=== PATIENT | male | born 1970 | race Caucasian/White ===

== ENCOUNTER 2021-01-06 00:40 | Day surgery (SDC) | payer BC, SELFPAY ==
[2020-12-22 09:46] VITALS: BMI 39.5
[2021-01-06 06:19] VITALS: BP 141/98; PULSE 77; RESP 20; TEMP 35.9; O2SAT 100
[2021-01-06] MEDS: LACTATED RINGERS 1,000 ML 150 ML IV CONT (06:21)
--- NOTE | 2021-01-06 07:16 | WPDANESEPPF ---
Anes - Initial Pre Proc Eval Procedure: Operation Date: 01/06/21 07:30 Proposed Procedures p Screening Colonoscopy - Lenny Good MD Date/Time: 01/06/21 07:16 Surgeon: Lenny Good MD Pre Op Diagnosis: neoplasm screening Patient Data Age: 50 Gender: M Height: 1.85 m Weight: 139.4 kg Last Vital Signs Temp 35.9 C L 01/06/21 06:19 Pulse 77 01/06/21 06:19 Resp 20 01/06/21 06:19 BP 141/98 H 01/06/21 06:19 Pulse Ox 100 01/06/21 06:19 Allergies Allergy/AdvReac Type Severity Reaction Status Date / Time No Known Allergies Allergy Verified 01/06/21 06:16 Home Medications Medication Instructions Recorded Confirmed Type atenolol 25 mg tablet 25 mg PO DAILY #90 tablet 10/22/20 01/06/21 Rx fluticasone propionate 50 2 spray INTRANASAL DAILY PRN #15.8 11/15/20 01/06/21 Rx mcg/actuation nasal ml spray,suspension Patient hx anesthesia problems: none Family hx anesthesia problems: none Results Review: All pre-operative results and documents have been reviewed as part of the pre-operative evaluation. [facility] Family History Family History Father Patient's father is Mother Hypertension Social History Social History Years smoked: 3 Smoking status: Former smoker Tobacco type: cigars Second hand tobacco smoke exposure: No Alcohol intake: current Alcohol use details: occasional Substance use: never Living arrangements: with family Spiritual care concerns: No Anes - Eval Final PreProcedure Day of Procedure 01/06/21 07:16 Patient weight: morbidly obese Heart: regular rate and rhythm Lungs: clear to auscultation Airway: Mallampati scale class II Neurological: alert and oriented Last oral intake: >/= 8 hours ASA classification: III Emergent: no Anesthetic plan: proceed Anesthesia type and monitoring: general GIVS and standard monitoring Results Review: All pre-operative results and documents have been reviewed as part of the pre-operative evaluation. Informed Consent: The patient's anesthetic plan and its attendant risks and benefits were discussed with the patient/family/POA. Questions were solicited and answers provided to the satisfaction of the patient/family/POA.
--- NOTE | 2021-01-06 07:21 | WPDGICN ---
Assessment and Plan Assessment and plan (1) Family history of colon cancer in mother: Code(s): Z80.0 - Family history of malignant neoplasm of digestive organs Status: Acute Assessment and Plan: Patient presents for neoplasia screening colonoscopy because of his age but also because of his mother having had colon cancer. Further recommendations will be given after screening colonoscopy GI Consult Note Consult date/time: 01/06/21 07:21 HPI: Jaya King Sr. is a 50 year old male Presents for screening colonoscopy. Patient reports that his current weight appetite and bowel movements are normal. He denies abdominal pain. He has had no bleeding. Family history is significant that his mother had colon cancer. Review of Systems Review of Systems: All systems reviewed & are unremarkable except as noted in HPI and below PMFSH Family History Family History Father Patient's father is Mother Hypertension Social History Social History Years smoked: 3 Smoking status: Former smoker Tobacco type: cigars Second hand tobacco smoke exposure: No Alcohol intake: current Alcohol use details: occasional Substance use: never Living arrangements: with family Spiritual care concerns: No Meds Home Medications and Allergies Home Medications Medication Instructions Recorded Confirmed Type atenolol 25 mg tablet 25 mg PO DAILY #90 tablet 10/22/20 01/06/21 Rx fluticasone propionate 50 2 spray INTRANASAL DAILY PRN #15.8 11/15/20 01/06/21 Rx mcg/actuation nasal ml spray,suspension Allergies Allergy/AdvReac Type Severity Reaction Status Date / Time No Known Allergies Allergy Verified 01/06/21 06:16 Vital Signs Vital Signs - 24 hr 01/06/21 06:19 Temperature 96.7 F L Pulse Rate 77 Respiratory Rate 20 Blood Pressure 141/98 H Pulse Oximetry 100 Exam Narrative: Physical exam reveals patient be alert. Vital signs stable. HEENT exam is unremarkable. Patient is anicteric. Lungs are clear to auscultation and percussion. Heart is without murmur or extra sounds. Abdominal exam bowel sounds are present soft nontender with no organomegaly. Digital external rectal exam is normal.
[2021-01-06 07:49] VITALS: BP 119/83; PULSE 75; RESP 16; O2SAT 97
[2021-01-06 07:59] VITALS: BP 136/84; PULSE 76; RESP 18; O2SAT 99
[2021-01-06 08:09] VITALS: BP 140/95; PULSE 72; RESP 20; O2SAT 100
== END 2021-01-06 08:22 | disposition home or self-care (01) ==
PROVIDERS: PCP Internal Medicine; Visit Provider Internal Medicine Gastroenterology
PROC: 0DJD8ZZ Inspection of Lower Intestinal Tract, Via Natural or Artificial Opening Endoscopic (ICD-10-PCS; CPT 45378; principal; 2021-01-06 07:30)
DX: Z12.11 Encounter for screening for malignant neoplasm of colon (principal); D12.3 Benign neoplasm of transverse colon; K62.1 Rectal polyp; K64.8 Other hemorrhoids; Z80.0 Family history of malignant neoplasm of digestive organs; Z87.891 Personal history of nicotine dependence; E66.01 Morbid (severe) obesity due to excess calories; Z68.41 Body mass index [BMI] 40.0-44.9, adult
CPT/HCPCS: 45385; 88305; J2704; J7120

== ENCOUNTER 2022-05-17 16:07 | Emergency (ER) | payer BC, SELFPAY ==
[2022-05-17 16:20] VITALS: BP 133/75; PULSE 82; RESP 20; TEMP 36.4; O2SAT 96
--- NOTE | 2022-05-17 16:29 | ED.SKABFB ---
HPI - Skin/Abscess/Foreign Bdy General Chief complaint: Skin/Abscess/Foreign Body Stated complaint: Bump,Lumps on Back Time Seen by Provider: 05/17/22 16:25 Source: patient Mode of arrival: ambulatory Limitations: no limitations History of Present Illness HPI narrative: Jaya is a 51-year-old male patient presenting to the clinic today with complaints of possible infected abscess to the mid back. He reports that he has had this lump on his back for over 20 years however over the last few days is become red and swollen and tender to touch. He denies any fever or chills. Related Data Allergies Allergy/AdvReac Type Severity Reaction Status Date / Time No Known Allergies Allergy Verified 05/17/22 16:14 Review of Systems Review of Systems: Pertinent positives per HPI. Patient denies any fever, chills, rash, headache, visual changes, dizziness, cough, runny nose, sore throat, shortness of breath, chest pain, palpitations, nausea, vomiting, diarrhea, constipation, abdominal pain, or any urinary issues. [facility] Family History Family History Father Patient's father is Mother Hypertension Social History Social History Years smoked: 3 Smoking status: Former smoker Tobacco type: cigars Second hand tobacco smoke exposure: No Alcohol intake: current Alcohol use details: occasional Substance use: never Living arrangements: with family Spiritual care concerns: No Comments At the time of my signature, I reviewed and agree with the nursing past medical, surgical, social, and family history. There is no relevant family history pertinent to the patient complaint. Exam Narrative: General: Well-developed, obese, in no apparent distress Head: Normocephalic, atraumatic. Cardio: Regular rate and rhythm, s1 and s2 normal, no murmur appreciated. Resp: Clear to auscultation bilaterally, no rhonchi, rales, wheezing or rubs. Integumentary: [place], warm, and dry, 11 x 9 cm indurated abscess to the left mid back with surrounding cellulitis-tender to palpation and fluctuance Course Course Emergency Course: Portions of this record may have been created with voice recognition software. Level of Care: Express Care Visit Vital Signs Vital signs: Vital Signs Temperature 36.4 C 05/17/22 16:20 Pulse Rate 82 05/17/22 16:20 Respiratory Rate 20 05/17/22 16:20 Blood Pressure 133/75 05/17/22 16:20 Pulse Oximetry 96 05/17/22 16:20 Oxygen Delivery Room Air 05/17/22 16:20 Temperature 36.4 C 05/17/22 16:20 Pulse Rate 82 05/17/22 16:20 Respiratory Rate 20 05/17/22 16:20 Blood Pressure 133/75 05/17/22 16:20 Pulse Oximetry 96 05/17/22 16:20 Oxygen Delivery Room Air 05/17/22 16:20 Vital signs reviewed MDM - Skin/Abscess/Foreign Bdy MDM Narrative Medical decision making narrative: At the time of visit patient is resting comfortably on the exam table. Verbal consent obtained for to complete incision and drainage abscess/cyst of the left mid back. Risk and benefits were reviewed. Supportive measures were discussed with the patient he voiced understanding of discharge instructions agrees to treatment plan Differential Diagnosis Differential diagnosis: Likely abscess of skin or subcutaneous tissue, cellulitis and other (Infected sebaceous cyst) Discharge Plan Discharge Clinical Impression: Infected sebaceous cyst of skin Patient Disposition: Home, Self-Care Condition: Stable Instructions: Antibiotic Form, Cyst (ED), Abscess Incision and Drainage (DC) Additional Instructions: Incision and drainage performed. Culture obtained and sent to the lab You may shower daily and wash area with soap and water however try to avoid pulling out the packing until Sunday morning. If needed you may come into the clinic and we can evaluate the wound a
== END 2022-05-17 17:24 | disposition home or self-care (01) ==
PROVIDERS: Emergency Provider Nurse Practitioner Family; PCP Internal Medicine
DX: L72.3 Sebaceous cyst (principal); Z87.891 Personal history of nicotine dependence
CPT/HCPCS: 87070; 87205; 99213; G0463

== ENCOUNTER 2022-05-20 08:05 | Emergency (ER) | payer BC, SELFPAY ==
--- NOTE | 2022-05-20 08:06 | ED.WOUNDLAC ---
HPI - Wound/Laceration General Stated Complaint: Wound Check Time Seen by Provider: 05/20/22 08:06 Source: patient Mode of arrival: ambulatory Limitations: no limitations History of Present Illness HPI narrative: Jaya is a 51-year-old male patient presenting to the clinic for a wound check. He was seen by myself on SundayMay 17 and had a incision and drainage of a infected sebaceous cyst to his left mid back. He is back here today for a wound check and packing removal. He is taking doxycycline and Keflex. Preliminary culture results show many gram positive cocci and growth of normal skin dave. Related Data Allergies Allergy/AdvReac Type Severity Reaction Status Date / Time No Known Allergies Allergy Verified 05/20/22 08:10 Review of Systems Review of Systems: Pertinent positives per HPI. Patient denies any fever, chills, rash, headache, visual changes, dizziness, cough, runny nose, sore throat, shortness of breath, chest pain, palpitations, nausea, vomiting, diarrhea, constipation, abdominal pain, or any urinary issues. PMFSH Family History Family History Father Patient's father is Mother Hypertension Social History Social History Years smoked: 3 Smoking status: Former smoker Tobacco type: cigars Second hand tobacco smoke exposure: No Alcohol intake: current Alcohol use details: occasional Substance use: never Living arrangements: with family Spiritual care concerns: No Comments At the time of my signature, I reviewed and agree with the nursing past medical, surgical, social, and family history. There is no relevant family history pertinent to the patient complaint. Exam Narrative: General: Well-developed, well nourished, in no apparent distress Head: Normocephalic, atraumatic. Cardio: Regular rate and rhythm, s1 and s2 normal, no murmur appreciated. Resp: Clear to auscultation bilaterally, no rhonchi, rales, wheezing or rubs. Integumentary: [place], warm, and dry, resolving infected sebaceous cyst-induration measuring 6 x 6 cm-initially induration was 11 and half by 9. Redness and swelling has decreased markedly. Nontender to palpation-small amount of clear/yellow discharge expressed from the cavity. Quarter-inch iodoform packing removed. Wound was cleansed and dry sterile dressing was applied Course Course Emergency Course: Portions of this record may have been created with voice recognition software. Level of Care: Express Care Visit Vital Signs Vital signs: Vital signs reviewed MDM - Wound/Laceration MDM Narrative Medical decision making narrative: At the time of visit patient is resting comfortably on the exam table. 1/4 inch iodoform packing was removed in the clinic and small amount of discharge was expressed from the cyst. I do not feel as though we need to repack the wound today and I will allow it to heal as drainage is decreasing. He is instructed to continue taking the Keflex and doxycycline as prescribed and follow-up with his PCP if symptoms persist or go to the emergency room if symptoms worsen. Supportive measures were discussed with the patient and he voiced understanding of discharge instructions and agrees to treatment plan. Differential Diagnosis Differential diagnosis: Likely other (Infected sebaceous cyst, wound check) Discharge Plan Discharge Clinical Impression: Infected sebaceous cyst of skin, Encounter for postoperative wound check Patient Disposition: Home, Self-Care Condition: Stable Instructions: Antibiotic Form, Cyst (ED) Additional Instructions: Packing was removed in the clinic today and small amount of drainage was expressed from the cyst. Keep wound covered if draining May wash daily with soap and water Daily dressing change-may complete more often as needed if draining May ta
[2022-05-20 08:13] VITALS: BP 149/95; PULSE 65; RESP 16; TEMP 35.7; O2SAT 98
== END 2022-05-20 08:28 | disposition home or self-care (01) ==
PROVIDERS: Emergency Provider Nurse Practitioner Family; PCP Internal Medicine
DX: L72.3 Sebaceous cyst (principal); Z87.891 Personal history of nicotine dependence; Z48.817 Encounter for surgical aftercare following surgery on the skin and subcutaneous tissue
CPT/HCPCS: 99211; G0463

== ENCOUNTER 2024-07-26 17:11 | Emergency (ER) | payer BC, SELFPAY ==
[2024-07-26 17:26] VITALS: BP 117/87; PULSE 88; RESP 16; TEMP 36.5; O2SAT 100
--- NOTE | 2024-07-26 18:14 | ED.GENADULT ---
HPI - General Adult General Chief complaint: Skin/Abscess/Foreign Body Stated complaint: Poison jona Time Seen by Provider: 07/26/24 18:13 History of Present Illness HPI narrative: 54-year-old male patient presents to the [facility] with complaints of a rash bilateral arms and neck and groin area for the past week. Patient states he cut down a tree last Sunday and since then has developed an itchy rash that has gotten worse and has spread. Patient states he has had poison jona before in the past. Related Data Allergies Allergy/AdvReac Type Severity Reaction Status Date / Time No Known Allergies Allergy Verified 07/26/24 17:27 Review of Systems Review of Systems: CONSTITUTIONAL: Denies fever, chills, or sweats. EYES: Denies visual changes, redness, or discharge. ENT: Denies rhinorrhea, congestion, sore throat, or otalgia. CARDIOVASCULAR: Denies chest pain, palpitations, or edema. RESPIRATORY: Denies cough or dyspnea. GASTROINTESTINAL: Denies abdominal pain, nausea, vomiting, or diarrhea. GENITOURINARY: Denies dysuria or hematuria. SKIN: Positive rash and itching. MUSCULOSKELETAL: Denies back pain, joint pain, or myalgia. NEUROLOGIC: Denies headache, numbness, or weakness. PSYCHIATRIC: Denies anxiety or depression. [facility] Past Medical History Medical History (Updated 07/26/24 @ 18:19 by PAOLA Mitchell) Essential (primary) hypertension Obesity, Class III, BMI 40-49.9 (morbid obesity) Mild acid reflux Hyperglycemia Family History Family History Father Patient's father is Mother Hypertension Social History Social History Years smoked: 3 Smoking status: Former smoker Tobacco type: cigars Second hand tobacco smoke exposure: No Alcohol intake: current Alcohol use details: occasional Substance use: never Lack of Transportation: No Lack of Food: Never True Current Housing: I Have Housing Concerned About Future Housing: No Difficulty Paying Gas/Electric Bills: No Difficulty Paying for Meds: No Currently Unemployed: No Education: Trade/Vocational Certificate Difficulty w/ Childcare or Family Care: No Living arrangements: with family Spiritual care concerns: No Exam Narrative: GENERAL: Well-appearing, well-nourished, and in no acute distress. HEAD: Normocephalic, atraumatic. EYES: PERRLA and EOMI. ENT: Nares clear, no rhinorrhea or epistaxis. Mucous membranes moist. NECK: Supple. No lymphadenopathy CHEST: Clear to auscultation. No respiratory distress. HEART: Regular rate and rhythm. No murmur heard. Normal peripheral pulses. ABDOMEN: Soft, nontender, nondistended, normal active bowel sounds. EXTREMITIES: Normal range of motion. No edema. SKIN: Erythemic rash and irregular patterns that is slightly raised and itchy noted to bilateral arms, right side of the neck, and groin area. NEURO: No focal deficits. Alert and oriented x3. Course Course Level of Care: Express Care Visit Vital Signs Vital signs: Vital Signs Temperature 36.5 C 07/26/24 17:26 Pulse Rate 88 07/26/24 17:26 Respiratory Rate 16 07/26/24 17:26 Blood Pressure 117/87 07/26/24 17:26 Pulse Oximetry 100 07/26/24 17:26 Temperature 36.5 C 07/26/24 17:26 Pulse Rate 88 07/26/24 17:26 Respiratory Rate 16 07/26/24 17:26 Blood Pressure 117/87 07/26/24 17:26 Pulse Oximetry 100 07/26/24 17:26 Vital signs reviewed. Medical Decision Making Vital Signs Vital Signs: Vital Signs Temperature 36.5 C 07/26/24 17:26 Pulse Rate 88 07/26/24 17:26 Respiratory Rate 16 07/26/24 17:26 Blood Pressure 117/87 07/26/24 17:26 Pulse Oximetry 100 07/26/24 17:26 Temperature 36.5 C 07/26/24 17:26 Pulse Rate 88 07/26/24 17:26 Respiratory Rate 16 07/26/24 17:26 Blood Pressure 117/87 07/26/24 17:26 Pulse Oximetry 100 07/26/24 17:26 Critical Care Time Critical Care Time Critical Care Time: No Discharge Plan Discharge Clinical Impression: Allergic contact dermatitis due to plant Patient Disposition: Home Condition: Stable Instructions: Antibiotic Form, Contact Dermatitis (ED) Additional Instructions: Poison jona, poison oak, and poison sumac are plants that can cause a skin rash upon contact. The red, itchy rash often shows up in lines or streaks. It may cause fluid-filled blisters or large, raised hives. The rash is caused by an allergic reaction to an oil in these plants. The rash may occur when you touch the plant or when you touch objects that have come in contact with these plants. Common examples include clothing, pet fur, sporting gear, or gardening tools. You can't catch or spread the rash by touching the rash or the blister fluid. The plant oil will already have been absorbed or washed off the skin. The rash may seem to be spreading because it's still developing from earlier contact or because you have touched something that still has the plant oil on it. Follow-up care is a evans part of your treatment and safety.?Be sure to make and go to all appointments, and call your doctor or nurse advice line (811?in most provinces and [facility]) if you are having problems. It's also a good idea to know your test results and keep a list of the medicines you take. How can you care for yourself at home? If your doctor prescribed a cream, use it as directed. If your doctor prescribed medicine, take it exactly as prescribed. Call your doctor or nurse advice line if you think you are having a problem with your medicine.Use cold, wet cloths to reduce itching.Take warm or cool baths with oatmeal bath products, such as Aveeno.Keep cool, and stay out of the sun.Leave the rash open to the air.Wash all clothing or other things that may have come in contact with the plant oil.Avoid most lotions and ointments until the rash heals. Calamine lotion may help relieve symptoms of a plant rash. Use it 3 or 4 times a day. To prevent exposure The best way to prevent future rashes is to learn to identify these plants and avoid them. Use a cream or lotion to help prevent the plant oil from getting on your skin. These products are available over the counter. Wear vinyl or leather gloves. Rubber (latex), cotton, or wool gloves offer no protection. Wash well or throw away anything that came into contact with the plants.Be sure to wash your hands before and after you use the washroom. Patient Language: Urdu Prescriptions: New prednisone 10 mg tablets,dose pack See Rx Instructions .ROUTE .COMPLEX Qty: 48 0RF Rx Instructions: 50 mg x 3 days, 40 mg x 3 days, 30 mg x 3 days, 20 mg x 3 days, 10 mg x 3 days No Action atenolol 25 mg tablet 25 mg PO DAILY Qty: 90 1RF tirzepatide 15 mg/0.5 mL pen injector 15 mg subcut WEEKLY Qty: 2 5RF Rx Instructions: May fill Mounjaro or Zepbound as per insurance preference. Follow-up/Referrals: PHYSICIAN,[place] [facility] [Primary Care Provider] - Time of Disposition: 18:17
== END 2024-07-26 18:20 | disposition home or self-care (01) ==
PROVIDERS: Emergency Provider Nurse Practitioner Family
DX: L23.7 Allergic contact dermatitis due to plants, except food (principal); Z87.891 Personal history of nicotine dependence; I10 Essential (primary) hypertension; K21.9 Gastro-esophageal reflux disease without esophagitis; E66.01 Morbid (severe) obesity due to excess calories; Z68.33 Body mass index [BMI] 33.0-33.9, adult
CPT/HCPCS: 99213; G0463